=== PATIENT | female | born 1940 | race Caucasian/White ===

== ENCOUNTER 2020-04-13 09:27 | Inpatient (IN) | payer OTHER ==
[2020-04-13 11:08] LABS: Absolute Lymphocytes (CBC) 1.4 K/uL (0.7-4.9); Basophils % 0.6 % (0-1.3); Hematocrit 32.9 % (36.0-45.0); Lymphocytes % 11.5 % (15.3-44.8); MPV 7.7 fL (7.6-11.3); RBC Red Blood Cell Count 3.26 M/uL (3.86-4.86)
[2020-04-13 11:19] LABS: ALT/SGPT 26 U/L (12-78); AST/SGOT 44 U/L (15-37); Albumin 3.2 g/dL (3.4-5.0); Alkaline Phosphatase 177 U/L (45-117); BUN Blood Urea Nitrogen 12 mg/dL (7-18); Bicarbonate 25 mmol/L (21-32); Bilirubin Direct 0.2 mg/dL (0-0.2); Bilirubin Total 0.6 mg/dL (0.2-1.0); Glucose Level 138 mg/dL (74-106); Lipase 101 U/L (73-393); Magnesium 2.2 mg/dL (1.8-2.4); NT PRO-BNP 174 pg/mL (<450); Potassium 3.8 mmol/L (3.5-5.1); Protein, Total 6.6 g/dL (6.4-8.2); Sodium Level 139 mmol/L (136-145); Troponin (Emerg Dept Use Only) < 0.02 ng/mL (0.0-0.045)
[2020-04-13] MEDS ORDERED: NA CHLORIDE 0.9% 1,000 ML ONE (11:32)
--- OUTSIDE RECORDS SUMMARY | 2020-04-13 11:40 | XMS REPORT | Clinical Summary ---
:1940 Author Organization [facility] Address [address] [place] [address] Care Team Providers Name Role Phone Romaine Cheney MD Primary Care Provider Allergies Active Allergy Reactions Severity Noted Date Comments Codeine Rash Low 02/19/2017 Garlic Rash Low 02/19/2017 Pregabalin Rash Low 02/19/2017 Milk Rash Low 02/19/2017 Morphine Rash Low 02/19/2017 Onion Rash Low 02/19/2017 Shrimp Rash Low 02/19/2017 Acetaminophen Rash Low 02/19/2017 Wheat Rash Low 02/19/2017 Yeast, Dried Rash Low 02/19/2017 Medications Medication Sig Dispensed Refills Start End Date Status Date zolpidem CR (AMBIEN 0 Active CR) 6.25 MG CR tablet 7 indomethacin SR 0 Acti ve (INDOCIN SR) 75 mg CR 7 capsule estradiol (ESTRACE) 0 Active 0.5 MG tablet 7 amitriptyline 0 Active (ELAVIL) 10 MG tablet 7 L. rhamnosus Take by 0 Active GG/inulin (CULTURELLE mouth. PROBIOTICS ORAL) LYSINE ORAL Take by 0 Active mouth. benzonatate 0 Active (TESSALON) 200 MG 4 capsule olmesartan (BENICAR) TAKE ONE (1) 1 Active 40 MG tablet TABLET(S) BY 9 MOUTH ONCE A DAY. levothyroxine 0 Active (SYNTHROID, LEVOXYL) 5 125 mcg tablet omeprazole (PriLOSEC) TAKE ONE 60 capsule 3 Active 40 MG CAPSULE BY 0 capsuleIndications: MOUTH TWICE Gastroesophageal A DAY reflux disease without esophagitis esomeprazole (NexIUM) Take 40 mg 0 0 Discontinued 40 MG capsule by mouth. 19 (Thera py completed) omeprazole (PriLOSEC) TAKE ONE 60 capsule 2 0 Discontinued 40 MG CAPSULE BY 9 19 (Reorder) capsuleIndications: MOUTH TWICE Gastroesophageal A DAY reflux disease without esophagitis omeprazole (PriLOSEC) TAKE ONE 22 capsule 1 0 Discontinued 40 MG CAPSULE BY 9 20 capsuleIndications: MOUTH TWICE Gastroesophageal A DAY reflux disease without esophagitis omeprazole (PriLOSEC) TAKE ONE 60 capsule 4 0 Discontinued 40 MG CAPSULE BY 0 20 capsuleIndications: MOUTH TWICE Gastroesophageal A DAY reflux disease without esophagitis Active Problems No known active problems Encounters Date Type Specialty Care Team Description 12/19/2019 Refill Gastroenterology Srinivasa Gaston Gastroes ophageal reflux Letrice, [employer] disease without esophagitis 11/02/2019 Refill Gastroenterology Srinivasa Gaston Gastroes ophageal reflux Letrice, [employer] disease without esophagitis 06/25/2019 Refill Gastroenterology Srinivasa Gaston Gastroes ophageal reflux Letrice, [employer] disease without esophagitis 04/17/2019 Telephone Gastroenterology Ita Reese, TERE 04/14/2019 Telephone Gastroenterology Alysha Maldonado Eosino philic gastritis RN (Primary Dx) after 04/13/2019 Family History Medical History Relation Name Comments Heart failure Father Heart attack Mother Relation Name Status Comments Father Mother Social History Tobacco Use Types Packs/Day Years Used Date Former Smoker 0.5 3 Quit: 1964 Smokeless Tobacco: Former User Alcohol Use Drinks/Week oz/Week Comments No Alcohol Habits Answer Date Recorded How often do you have a drink containing alcohol? Never 02/12/2019 How many drinks containing alcohol do you have on a typical Not asked day when you are drinking? How often do you have six or more drinks on one occasion? No t asked Sex Assigned at Date Recorded Not on file Job Start Date Occupation Industry Not on file Not on file Not on file Travel History Travel Start Travel End No recent travel history available. Last Filed Vital Signs Not on file Plan of Treatment Health Maintenance Due Date Last Done Comments COLONOSCOPY SCREENING 1941 SHINGLES VACCINES (#1) 01/22/1992 65+ PNEUMOCOCCAL VACCINE (1 of 2 - PCV13) 2007 INFLUENZA VACCINE 05/29/2020 Results Not on fileafter 04/13/2019 Insurance Payer Benefit Plan / Subscriber ID Effective Dates Phone Addre ss Type Group HUMANA MEDICARE HUMANA MEDICARE xxxxxxxxx 2017-Present PPO PPO/PFFS/ERS [facility] Advance Directives For more information, please contact: [phone] Type Date Recorded Patient Marshmallow Runner Explanati on Advance Directives, Living Will 03/03/2019 7:40 AM and Medical 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
--- OUTSIDE RECORDS SUMMARY | 2020-04-13 11:40 | XMS REPORT | Continuity of Care Document ---
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 Hypertensive Active Problem 06/23/2019 Med ical disorder, Group systemic arterial (disorder) Hypothyroidism Resolved Problem 06/23/2019 M edical (disorder) Group Medical Active Problem 06/23/2019 Medica l examinations/repo Gr oup rts status (finding) Memory impairment Active Problem 06/23/2019 M H Medical (finding) Group Obesity Active Problem 06/23/2019 Medica l (disorder) Group Medications Medication Details Route Status Patient Ordering Order Source Instructions Provider Date olmesartan 40 mg = 1 tab, PO, Active MH oral tablet Daily, # 90 019 Medical tab, Group Pharmacy: [place] [address] amitriptyline 10 = 2 tab, PO, Active MH mg oral tablet Bedtime, # 019 Medica l 180 tab, Group Pharmacy: [place] [address] indomethacin 75 = 1 cap, PO, Active MH mg oral capsule, Daily, # 90 019 Med ical extended release unknown Group unit, Pharmacy: [place] [address] Levothyroxine See Active MH Sodium 0.088 MG Instructions 018 Med ical Oral Tablet , TAKE ONE Group [Synthroid] TABLET BY MOUTH DAILY, # 90 tab, 0 Refill(s), CHARLEY, Pharmacy: [place] [address] Levothyroxine See Active MH Sodium 0.088 MG Instructions 018 Med ical Oral Tablet , TAKE ONE Group [Synthroid] TABLET BY MOUTH DAILY, # 90 tab, 2 Refill(s), CHARLEY, Pharmacy: [place] [address] indomethacin 75 75 mg = 1 No Longer MH mg oral capsule, cap, PO, Active 018 Medica l extended release Daily, # 90 Marian up cap, 0 Refill(s), Pharmacy: [place] [address] Zolpidem 6.25 mg = 1 Active tartrate 6.25 MG tab, PO, 018 Medica l Extended Release Bedtime, PRN Gr oup Tablet [Ambien] for sleep, # 30 tab, 2 Refill(s) amitriptyline 10 See No Longer mg oral tablet Instructions Active 018 Medi esau , # 180 tab, Group TAKE TWO TABLETS BY MOUTH AT BEDTIME, Pharmacy: [place] [address] olmesartan 40 mg 40 mg = 1 No Longer oral tablet tab, PO, Active 018 Medical Daily, # 90 Group tab, 1 Refill(s), Pharmacy: [place] [address] Levothyroxine See Active Sodium 0.088 MG Instructions 018 Med ical Oral Tablet , # 90 tab, Group [Synthroid] Refill(s) 1, TAKE ONE TABLET BY MOUTH DAILY, CHARLEY, Pharmacy: [place] [address] valsartan 320 mg See Active oral tablet Instructions 018 Medical , # 90 tab, Group TAKE ONE TABLET BY MOUTH DAILY, Pharmacy: [place] [address] amitriptyline 10 20 mg = 2 Active mg oral tablet tab, PO, 018 Medical Bedtime, # Group 180 tab, 0 Refill(s), Pharmacy: [place] [address] Zolpidem 6.25 mg = 1 Active tartrate 6.25 MG tab, PO, 018 Medica l Extended Release Bedtime, PRN Gr oup Tablet [Ambien] for sleep, # 30 tab, 2 Refill(s) valsartan 320 mg See No Longer oral tablet Instructions Active 018 Medical , # 90 tab, Group TAKE ONE TABLET BY MOUTH DAILY, Pharmacy: [place] [address] Levothyroxine See No Longer Sodium 0.088 MG Instructions Active 018 Med ical Oral Tablet , # 90 tab, Group [Synthroid] TAKE ONE TABLET BY MOUTH DAILY, CHARLEY, Pharmacy: [place] [address] omeprazole 40 mg 40 mg = 1 Active oral delayed cap, PO, 018 Medical release capsule Daily, # 90 Grou p cap, 1 Refill(s), [facility] Megan indomethacin 75 75 mg = 1 Active mg oral capsule, cap, PO, 018 Medica l extended release Daily, # 90 Marian up cap, 1 Refill(s), Pharmacy: [facility] Megan indomethacin 75 See No Longer mg oral capsule, Instructions Active 018 Me dical extended release , # 90 Group unknown unit, TAKE ONE CAPSULE BY MOUTH ONCE DAILY, Pharmacy: [place] [address] amitriptyline 10 See Active mg oral tablet Instructions 017 Medi esau , # 180 tab, Group TAKE TWO TABLETS BY MOUTH AT BEDTIME, Pharmacy: [facility] Megan indomethacin 75 See Active mg oral capsule, Instructions 017 Me dical extended release , # 90 Group unknown unit, TAKE ONE CAPSULE BY MOUTH ONCE DAILY, Pharmacy: [place] [address] Allergies, Adverse Reactions, Alerts Substance Category Reaction Severity Reaction Status Date Comments S ource type Reported codeine Assertion Drug Active allergy Medical Group morphine Assertion Drug Active allergy Medical Group Tylenol Assertion Drug Active allergy Medical Group Lyrica Assertion Drug Active allergy Medical Group Immunizations Immunization Date Given Site Status Last Comments Source Updated pneumococcal 09/17/2015 Left completed [facility] Med ical 23-valent vaccine Deltoid Gr oup Results No Data Provided for This Section Pathology Reports No Data Provided for This Section Diagnostic Reports No Data Provided for This Section Consultation Notes No Data Provided for This Section Discharge Summaries No Data Provided for This Section History and Physicals No Data Provided for This Section Vital Signs Vital Sign Value Date Comments Source Height 167.64 cm 12/21/2017 Medical Grou p BMI Calculated 30.25 12/21/2017 Medical Gr oup Systolic (mm Hg) 146 12/21/2017 Medical Group Diastolic (mm Hg) 80 12/21/2017 Medical Group Weight 85 12/21/2017 Medical Grou p Heart Rate 60 12/21/2017 Medical Grou p Respitory Rate 18 12/21/2017 Medical Gr oup Temperature Oral (F) 97.7 F 12/21/2017 Medi esau Group Encounters Location Location Encounter Encounter Reason Attending ADM DC Stat us Source Details Type Number For Provider Date Date Visit [facility] Out[facility] Diag [id number] Desire 07/07 07/08 [facility]2013 [facility] [place] [facility] [id number] DESIRE 09/17 [facility] [id number] DESIRE 03/03 [facility] [id number] DESIRE 06/19 Active [facility] [id number] DESIRE 09/18 Active [facility] [id number] DESIRE 10/05 Active [facility] [id number] DESIRE 10/05 Active [facility] [id number] DESIRE 10/09 Active [facility] [id number] DESIRE 11/15 Active [facility] MG Phone [id number] 09/12 09/14 Internal Message /2016 [facility] Group [facility] Phone [id number] 12/13 12/15 Internal Message /2017 Medical Medicine Group [facility] Outpatient [id number] DESIRE 12/21 Active [facility]patient [id number] Desire 12/21 12/22 MH Internal [place] /2017 [facility] Medicine Group [facility] Phone [id number] 12/26 12/28 Internal Message /2017 Medical Medicine Group [facility] Phone [id number] 12/31 01/02 Internal Message /2017 Medical Medicine Group [facility] Phone [id number] 12/31 01/02 MH Internal Message /2017 Medical Medicine Group [facility] Phone [id number] 01/30 02/01 Internal Message /2017 Medical Medicine Group [facility] Phone [id number] 02/25 02/27 Internal Message /2017 Medical Medicine Group [facility] Phone [id number] 04/01 04/03 Internal Message /2017 Medical Medicine Group [facility] Phone [id number] 06/25 06/27 Internal Message /2017 Medical Medicine Group [facility] Phone [id number] 06/26 06/28 Internal Message /2017 Medical Medicine Group [facility] Phone [id number] 08/27 08/29 Internal Message /2017 Medical Medicine Group [facility] Phone [id number] 09/03 09/05 Internal Message /2017 [facility] Phone [id number] 09/23 09/25 Internal Message /2017 Medical Medicine Group [facility] Phone [id number] 09/24 09/26 Internal Message /2017 Medical Medicine Group [facility] Phone [id number] 12/02 12/04 Internal Message /2018 Medical Medicine Group [facility] Phone [id number] 12/19 12/21 Internal Message /2018 Medical Medicine Group [facility] Procedures Procedure Code Date Perfomer Comments Source Mammogram [id number] 11/29/2017 Medical Group Bone density scan [id number] 12/14/2016 Medi esau Group Pelvic prolapse [id number] 10/29/2015 Medica l Group Total knee [id number] 06/28/2015 Left Medical replacement<sup>1</ Group sup> Colonoscopy [id number] 10/29/2008 Medical Group Repair of vaginal 514055017 10/29/2006 Medi esau wall prolapse Group Manipulation of [id number] 10/29/1995 Medica l deviated nasal Group septum Hysterectomy [id number] 10/29/1984 Medical Group Knee replacement [id number] 10/29/1975 Medic al Group Assessment and Plan No Data Provided for This Section Plan of Care No Data Provided for This Section Social History Social History Date Source Social History TypeResponse 12/21/2017 Medical G roup Smoking Status Former smoker; Type: Cigarettes; Exposur e to Tobacco Smoke None; Cigarette Smoking Last 365 Days No; Reg Smoking Cessation Counseling No entered on: 12/21/17 Family History No Data Provided for This Section Advance Directives No Data Provided for This Section Functional Status No Data Provided for This Section
--- OUTSIDE RECORDS SUMMARY | 2020-04-13 11:41 | XMS REPORT | Continuity of Care Document ---
:1940 Author Organization [facility] t Address [address] [place] [address] Care Team Providers Name Role Phone Romaine Cheney MD Primary Care Physician Juan Carlos Gaston NP Attending Clinician Marissa Reese MA Attending Clinician Unavailable Joel VILLARREAL Attending Clinician Unavailable Chris Juan Attending Clinician Payers Payer Name Policy Type Policy Number Effective Date Expiration Source Date HUMANA xxxxxxxxx 2017 [facility] MEDICAREHUMANA 00:00:00 [facility] MEDICARE PPO/PFFS/ERS [facility]/ [id number] Problems Condition Condition Condition Status Onset Resolution Last Treating Co mments Source Name Details Category Date Date Treatment Clinician Date Bursitis Problem Resolve 2019-06-23 Me moria (disorder) d 13:41:10 l Bursitis Live n (disorder) Resolved Problem 06/23/2019 [facility] Hypothyroi Problem Resolve 2019-06-23 Memoria dism d 13:41:10 l (disorder) Live n Hypothyroi dism (disorder) Resolved Problem 06/23/2019 [facility] Fibromyosi Problem Active 2019-06-23 M emoria tis 13:41:10 l (disorder) Live n Fibromyosi tis (disorder) Active Problem 06/23/2019 [facility] Hypertensi Problem Active 2019-06-23 M emoria ve 13:41:10 l disorder, [place] systemic Hypertensi arterial ve (disorder) disorder, systemic arterial (disorder) Active Problem 06/23/2019 [facility] Medical Problem Active 2019-06-23 Quintin yosi examinatio 13:41:10 l ns/reports Medical Her connor status examinatio (finding) ns/reports status (finding) Active Problem 06/23/2019 [facility] Memory Problem Active 2019-06-23 Memor ia impairment 13:41:10 l (finding) Memory Cadence nn impairment (finding) Active Problem 06/23/2019 [facility] Obesity Problem Active 2019-06-23 Quintin yosi (disorder) 13:41:10 l Obesity Johnson (disorder) Active Problem 06/23/2019 [facility] Allergies, Adverse Reactions, Alerts Allergy Allergy Status Severity Reaction(s) Onset Inactive Treating Comm ents Source Name Type Date Date Clinician Codeine Propensi Active Rash [facility] ty to 02-19 [facility] adverse 00:00: st reaction 00 s to drug Garlic Propensi Active Rash [facility] ty to 02-19 [facility] adverse 00:00: st reaction 00 s to drug Pregabal Propensi Active Rash [place] in ty to 02-19 Methodi adverse 00:00: st reaction 00 s to drug Milk Propensi Active Rash [facility] ty to 02-19 Methodi adverse 00:00: st reaction 00 s to drug Morphine Propensi Active Rash [place] ty to 02-19 Methodi adverse 00:00: st reaction 00 s to drug Onion Propensi Active Rash [facility] ty to 02-19 Methodi adverse 00:00: st reaction 00 s to drug Shrimp Propensi Active Rash [facility] ty to 02-19 Methodi adverse 00:00: st reaction 00 s to drug Acetamin [facility] adverse 00:00: st reaction 00 s to drug Wheat Propensi Active Rash [facility] ty to 02-19 Method[facility] adverse 00:00: st reaction 00 s to drug Yeast, Propensi Active Rash [facility] Dried ty to 02-19 Methodi adverse 00:00: st reaction 00 s to drug morphine [place] [facility] [place] [facility] [place] [place] [facility] [place] [facility] pregabal DA Active [place] [facility]- [facility] [place] codeine codeine Active Memoria l [place] morphine morphine Active Memori a l [place] Tylenol Tylenol Active Memoria l [place] Lyrica Lyrica Active Memoria l [place] Family History Family Member Diagnosis Comments Start Date Stop Date Source Natural father Heart failure [facility] Natural mother Heart attack [facility] Social History Social Habit Start Date Stop Date Quantity Comments Source History of tobacco Current smoker [place] [facility] use History [facility] Alcohol Std Drinks History [facility] Alcohol Binge Sex [facility]igned At [facility] ethodist Cigarettes smoked 2019-04-08 2019-04-08 [facility] current (pack per 00:00:00 00:00:00 day) - Reported Cigarette 2019-04-08 2019-04-08 [facility] pack-years 00:00:00 00:00:00 Alcohol intake 2019-04-08 2019-04-08 Current [facility]ist 00:00:00 00:00:00 non-drinker of alcohol (finding) History SDPR 2019-02-12 2019-02-12 1 [facility] Alcohol Frequency 00:00:00 00:00:00 Smoking Status Start Date Stop Date Source Social History 2017-12-21 15:09:02 2017-12-21 15:09:02 [facility] Medications Ordered Filled Start Stop Current Ordering Indication Dosage Frequency Signature Comments Components Source Medication Medication Date Date Medication? Clinician (SIG) Name Name omeprazole Yes Gastroesoph TAKE ONE [facility] (PriLOSEC) 2- ageal CAPSULE BY Va thodi 40 MG 00:00: reflux MOUTH st capsule 00 disease TWICE A without DAY esophagitis omeprazole 2020- No Gastroesoph TAKE ONE [facility] (PriLOSEC) 11-03 ageal CAPSULE BY ethodi 40 MG 00:00: 00:[address] capsule 00 :00 disease TWICE A without DAY esophagitis esomeprazol 2019- No 40mg Take 40 mg Martinez e (NexIUM) 06-25 by mouth. Met hodi 40 MG 13:21: 00:00 st capsule 53 :00 omeprazole 2020- No Gastroesoph TAKE ONE Martinez (PriLOSEC) 06-25 ageal CAPSULE BY Nate ethodi 40 MG 00:00: 00:[address] capsule 00 :00 disease TWICE A without DAY esophagitis L. Yes Take by Martinez rhamnosus 6-11 mouth. Methodi GG/inulin 11:02: st (CULTURELLE 39 PROBIOTICS ORAL) LYSINE ORAL Yes Take by Za ston 6-11 mouth. Methodi 11:02: st 39 omeprazole 2019- No Gastroesoph TAKE ONE Martinez (PriLOSEC) 03-10 ageal CAPSULE BY Nate ethodi 40 MG 00:00: 00:[address] capsule 00 :00 disease TWICE A without DAY esophagitis olmesartan Yes TAKE ONE Za harry (BENICAR) - (1) Methodi 40 MG 00:00: TABLET(S) st tablet 00 BY MOUTH ONCE A DAY. olmesartan Yes = 1 tab, Mem oria 40 mg oral 2-21 PO, Daily, l tablet 16:50: # 90 tab, Live n 08 Pharmacy: [place] [id number] amitriptyli Yes = 2 tab, Me moria ne 10 mg 2-05 PO, l oral tablet 15:33: Bedtime, # [place] 35 180 tab, Pharmacy: [place] [id number] indomethaci Yes = 1 cap, Me moria n 75 mg 2-01 PO, Daily, l oral 16:29: # 90 [place] capsule, 05 unknown extended unit, release Pharmacy: [place] [id number] Levothyroxi 2017-10 Yes See Memori a ne Sodium 1-28 Instructio l 0.088 MG 00:36: ns, TAKE Cadence nn Oral Tablet 00 ONE TABLET [Synthroid] BY MOUTH DAILY, # 90 tab, 0 Refill(s), CHARLEY, Pharmacy: [place] [id number] Levothyroxi 2017-10 Yes See Memori a ne Sodium 1-27 Instructio l 0.088 MG 20:53: ns, TAKE Cadence nn Oral Tablet 35 ONE TABLET [Synthroid] BY MOUTH DAILY, # 90 tab, 2 Refill(s), CHARLEY, Pharmacy: [place] [id number] indomethaci 2017-10 No 75 mg = 1 M emoria n 75 mg 1-07 cap, PO, l oral 00:18: Daily, # Johnson capsule, 00 90 cap, 0 extended Refill(s), release Pharmacy: [place] [id number] Zolpidem 2017-10 Yes 6.25 mg = Quintin yosi tartrate 0-31 1 tab, PO, l 6.25 MG 03:18: Bedtime, Live n Extended 00 PRN for Release sleep, # Tablet 30 tab, 2 [Ambien] Refill(s) amitriptyli No See Memori a ne 10 mg 8-30 Instructio l oral tablet 23:21: ns, # 180 H ermann 42 tab, TAKE TWO TABLETS BY MOUTH AT BEDTIME, Pharmacy: [place] [id number] olmesartan No 40 mg = 1 Me moria 40 mg oral 8-30 tab, PO, l tablet 03:47: Daily, # Johnson 00 90 tab, 1 Refill(s), Pharmacy: [place] [id number] Levothyroxi Yes See Memori a ne Sodium 6-04 Instructio l 0.088 MG 17:40: ns, # 90 Cadence nn Oral Tablet 45 tab, [Synthroid] Refill(s) 1, TAKE ONE TABLET BY MOUTH DAILY, CHARLEY, Pharmacy: [place] [id number] valsartan Yes See Memoria 320 mg oral 6-04 Instructio l tablet 17:40: ns, # 90 [place] 45 tab, TAKE ONE TABLET BY MOUTH DAILY, Pharmacy: [place] [id number] amitriptyli Yes 20 mg = 2 M emoria ne 10 mg 4-30 tab, PO, l oral tablet 15:10: Bedtime, # Johnson 00 180 tab, 0 Refill(s), Pharmacy: [place] [id number] Zolpidem Yes 6.25 mg = Quintin yosi tartrate 4-04 1 tab, PO, l 6.25 MG 20:15: Bedtime, Live n Extended 00 PRN for Release sleep, # Tablet 30 tab, 2 [Ambien] Refill(s) valsartan No See Memoria 320 mg oral 3-06 Instructio l tablet 03:27: ns, # 90 Johnson 51 tab, TAKE ONE TABLET BY MOUTH DAILY, Pharmacy: [place] [address] Levothyroxi No See Memori a ne Sodium 3-05 Instructio l 0.088 MG 19:31: ns, # 90 Cadence nn Oral Tablet 04 tab, TAKE [Synthroid] ONE TABLET BY MOUTH DAILY, CHARLEY, Pharmacy: [place] [id number] omeprazole Yes 40 mg = 1 Me moria 40 mg oral 2-28 cap, PO, l delayed 21:03: Daily, # Live n release 00 90 cap, 1 capsule Refill(s), Pharmacy: [place] [id number] indomethaci Yes 75 mg = 1 M emoria n 75 mg 2-23 cap, PO, l oral 15:39: Daily, # [place] capsule, 12 90 cap, 1 extended Refill(s), release Pharmacy: [place] [id number] indomethaci No See Memori a n 75 mg 2-15 Instructio l oral 23:57: ns, # 90 [place] capsule, 50 unknown extended unit, TAKE release ONE CAPSULE BY MOUTH ONCE DAILY, Pharmacy: [place] [address] amitriptyli 2016-10 Yes See Memori a ne 10 mg 1-15 Instructio l oral tablet 20:55: ns, # 180 H ermann 30 tab, TAKE TWO TABLETS BY MOUTH AT BEDTIME, Pharmacy: [place] [address] indomethaci 2016-10 Yes See Memori a n 75 mg 1-15 Instructio l oral 20:55: ns, # 90 Johnson capsule, 30 unknown extended unit, TAKE release ONE CAPSULE BY MOUTH ONCE DAILY, Pharmacy: [place] [address] amitriptyli Yes Betsy milligan ne (ELAVIL) 4-17 Methodi 10 MG 00:00: st tablet 00 zolpidem CR Yes Betsy milligan (AMBIEN CR) 4-10 [facility] 6.25 MG CR 00:00: st tablet 00 indomethaci Yes Betsy milligan n SR 2-07 [facility] (INDOCIN 00:00: st SR) 75 mg 00 CR capsule estradiol Yes Juan (ESTRACE) 2-07 [facility] 0.5 MG 00:00: st tablet 00 levothyroxi Yes Betsy milligan ne 2-18 [facility] (SYNTHROID, 00:00: st LEVOXYL) 00 125 mcg tablet benzonatate Yes Betsy n (TESSALON) 3-28 [facility] 200 MG 00:00: st capsule 00 Vital Signs Vital Name Observation Time Observation Value Comments Source Height 2017-12-21 15:08:00 167.64 cm [facility] [place] Sy[facility]mm Hg) 2017-12-21 15:08:00 Quintin rial [place] Diastolic (mm Hg) 2017-12-21 15:08:00 [facility] orial [place] Weight 2017-12-21 15:08:00 [facility] Heart Rate 2017-12-21 15:08:00 [facility] Respitory Rate 2017-12-21 15:08:00 [facility] Temperature Oral (F) 2017-12-21 15:08:00 97.7 F [facility] Procedures Procedure Date / Time Performed Performing Clinician [facility] e Mammogram 2017-11-29 00:00:00 [facility] Her connor Bone density scan 2016-12-14 06:00:00 [facility] Lynda ermann Pelvic prolapse 2015-10-29 00:00:00 [facility] Her connor Total knee 2015-06-28 05:00:00 [facility] Her connor replacement<sup>1</sup> Colonoscopy 2008-10-29 00:00:00 [facility] Her connor Repair of vaginal wall 2006-10-29 06:00[facility] Ornelas prolapse Manipulation of deviated 1995-10-29 06:00:00 [facility] orial [place] nasal septum Hysterectomy 1984-10-29 06:00:00 [facility] Her connor Knee [facility]10[facility] Planned Activity Planned Date Details Comments Source Future Scheduled 2020-05-29 INFLUENZA VACCINE [facility] Test 00:00:00 [code = INFLUENZA VACCINE] Future Scheduled 2007 65+ PNEUMOCOCCAL [facility] Test 00:00:00 VACCINE (1 of 2 - PCV13) [code = 65+ PNEUMOCOCCAL VACCINE (1 of 2 - PCV13)] Future Scheduled 1992-01-22 SHINGLES VACCINES (#1) H [facility] Test 00:00:00 [code = SHINGLES VACCINES (#1)] Future Scheduled 1941 COLONOSCOPY SCREENING [facility] je[facility] Test 00:00:00 [code = COLONOSCOPY SCREENING] Encounters Start End Encounter Admission Attending Care Care Encounter Source Date/Time Date/Time Type Type Clinicians Facility Department ID 2018-12-19 2018-12-20 Outpatient [facility] [id number] 10:41:00 23:59:59 39 2018-12-02 2018-12-03 Outpatient [facility] [id number] 15:32:00 23:59:59 38 2018-12-02 2018-12-03 Outpatient [facility] [id number] 15:32:00 23:59:59 38 2018-09-24 2018-09-25 Outpatient [facility] [id number] 14:52:00 23:59:59 37 2018-09-23 2018-09-24 Outpatient [facility] [id number] 13:48:00 23:59:59 36 2018-09-03 2018-09-04 Outpatient [facility] [id number] 12:35:00 23:59:59 35 2018-08-27 2018-08-28 Outpatient [facility] [id number] 16:15:00 23:59:59 34 2018-06-26 2018-06-27 Outpatient [facility] [id number] 14:10:00 23:59:59 33 2018-06-25 2018-06-26 Outpatient [facility] [id number] 15:37:00 23:59:59 32 2018-04-01 2018-04-02 Outpatient [facility] [id number] 10:09:00 23:59:59 31 2018-02-25 2018-02-26 Outpatient [facility] [id number] 08:50:00 23:59:59 30 2018-01-30 2018-01-31 Outpatient [facility] [id number] 09:05:00 23:59:59 29 2017-12-31 2018-01-01 Outpatient [facility] [id number] 14:00:00 23:59:59 28 2017-12-31 2018-01-01 Outpatient [facility] [id number] 14:00:00 23:59:59 28 2017-12-31 2018-01-01 Outpatient [facility] [id number] 07:45:00 23:59:59 27 2017-12-31 2018-01-01 Outpatient [facility] [id number] 07:45:00 23:59:59 27 2017-12-26 2017-12-27 Outpatient [facility] [id number] 08:06:00 23:59:59 26 2017-12-21 2017-12-21 Outpatient Yessica [facility] [id number] 10:00:00 23:59:59 Desire Perez 08 2017-12-13 2017-12-14 Outpatient [facility] [id number] 12:51:00 23:59:59 25 2017-09-12 2017-09-13 Outpatient [facility] [id number] 09:00:00 23:59:59 24 2014-07-07 2014-07-07 [id number] 09:01:00 23:59:00 Desire Perez 00 Results This patient has no known results.
[2020-04-13 11:49] LABS: Urine Blood NEGATIVE (NEG); Urine Glucose NEGATIVE (NEG); Urine Protein TRACE (NEG); Urine Specific Gravity 1.025 (1.005-1.030)
--- NOTE | 2020-04-13 12:03 | RAD REPORT ---
EXAM DESCRIPTION: CT - Head C Spine Cap W Con - 04/13/2020 11:43 am CLINICAL HISTORY: Pain;Weakness;Swelling COMPARISON: No comparisons TECHNIQUE: Axial [address] head images were obtained. Axial [address] cervical spine images were obtaine d with sagittal and coronal reconstruction images reviewed. During dynamic enhancement of 100mL non-i onic contrast, axial 5 mm images of the chest, abdomen and pelvis were obtained. Biphasic technique p erformed of the abdomen and pelvis. All CT scans are performed using dose optimization technique as appropriate and may include automated exposure control or mA/KV adjustment according to patient size. FINDINGS: No intracranial hemorrhage, mass or edema. No midline shift or abnormal fluid collection. Patient has minimal atrophy and chronic ischemic change. Ventricles are normal. Mastoid air cells and paranasal sinuses are clear. No skull fracture. Cervical bodies are normal in height. No acute cervical compression fracture. All disc levels except C2-3 show loss in height. Prominent endplate spurring throughout most of the cervical spine. There is straightening of the usual cervical lordosis with a slight reversal at C4. Advanced facet degenerati ve change causes mild foraminal stenosis on the left at C 2-3. Bilateral foraminal stenosis at C3-4 w ith severe left-side C4-5 foraminal stenosis. Significant bilateral foraminal stenosis at C 5-6. Cent ral spinal stenosis is present at C5-6 and C4-5. No paraspinal mass or hematoma seen. Central canal d etail is inherently limited. Concerns for traumatic disc herniation or traumatic cord injury can be f urther addressed with MR imaging. CT chest shows no pneumothorax, pulmonary contusion or pleural fluid collection. No mediastinal hemat bette and the aorta and pulmonary arteries are unremarkable. No chest will mass or abnormal axillary fi nding. No displaced rib fracture or other significant bony finding. The spleen is abnormal. Splenic laceration is present. There is an approximately 8 x 3.5 centimeter s ubcapsular hematoma along the lateral margin of the spleen. Small amount of hemorrhage is present kyle ng the left colic gutter already partially in capsulated. Small amount of hemorrhage is collecting in the dependent portion of the pelvis. Splenic granulomas are present. No active extravasation of cont rast. The liver shows fatty infiltration with no injury to the liver. No pancreatic abnormality. Gallbladde r is absent. No biliary tree dilatation. No acute bowel injury. No free air or pneumatosis. No urinar y bladder abnormality. No thoracic or lumbar compression fracture. Disc degenerative change in the lower lumbar spine. No significant vascular finding. IMPRESSION: Splenic laceration with no active extravasation of the contrast. There is an 8 x 3.5 jlil timeter subcapsular hematoma in the spleen. Blood is present along the left colic gutter already partially encapsulated. There is a small amount of blood collecting in the pelvis. No hemorrhage or acute intracranial finding. Patient has minimal atrophy and chronic ischemic change. Patient has severe cervical spine degenerative change with multilevel foraminal stenosis and multilev el central spinal stenosis. No fracture or acute cervical spine finding. No significant CT Chest finding. With the exception of the splenic findings detailed above, the abdomen and pelvis shows no additional acute finding.
--- NOTE | 2020-04-13 12:25 | RAD REPORT ---
EXAM DESCRIPTION: RAD - Chest Single View - 04/13/2020 12:02 pm CLINICAL HISTORY: Chest pain;Blunt chest trauma COMPARISON: Two view chest February 2013 TECHNIQUE: AP portable chest image was obtained 04/13/2020 12:02 pm . FINDINGS: No pulmonary contusion or acute lung parenchymal pattern. Patient has chronic interstitial pattern accentuated by shallow inspiration. Calcified granuloma surface. Heart and vasculature are n ormal. No measurable pleural effusion and no pneumothorax. No acute bony abnormality seen. No acute a ortic findings suspected. IMPRESSION: No pulmonary contusion, pneumothorax or acute chest finding. Chronic interstitial fibrotic pattern similar to comparison.
--- NOTE | 2020-04-13 12:36 | ER ---
Nurse's Notes [facility] Name: Jennifer Venegas Age: 80 yrs Sex: Female : 1940 Arrival Date: 04/13/2020 Time: 09:29 Bed 4 Private MD: Diagnosis: Laceration of spleen-8x 3.5 cm sibcapsular hematoma;Hemoperitoneum;Syncope and collapse;Abdominal tenderness Presentation: 04/13 09:47 Chief complaint: Patient states: Slipped and fell approx 10 days ago [place], ph states, " I slipped on some rocks and landed on my arms and my L side hit a statue, I felt like I bruised my ribs and my arms were pretty beat up but I didn't go to the hospital. I started feeling better but then last night while I was getting ready for bed I passed out, saw stars and everything." Pt reports an episode of urinary incontinence after passing out, denies injury r/t syncopal episode. Coronavirus screen: Patient denies a cough. Patient denies shortness of breath or difficulty breathing. Patient denies measured and/or subjective temperature greater than 100.4F prior to today's visit. Patient denies travel on a cruise ship or to a country the [facility] currently lists as an affected area. Patient denies contact with known and/or suspected case of COVID-19. Ebola Screen: No symptoms or risks identified at this time. Initial Sepsis Screen: Does the patient meet any 2 criteria? No. Patient's initial sepsis screen is negative. Does the patient have a suspected source of infection? No. Patient's initial sepsis screen is negative. Risk Assessment: Do you want to hurt yourself or someone else? Patient reports no desire to harm self or others. Onset of symptoms was April 13, 2020. 09:47 Method Of Arrival: Wheelchair ph 09:47 Acuity: BASIL 3 ph Historical: - Allergies: 09:52 Morphine; ph 09:52 Codeine; ph 09:52 acetaminophen; ph 09:52 PREGABALIN; ph - Home Meds: 12:48 Indocin 75 mg Oral [Active]; omeprazole 40 mg Oral cpDR 1 cap once daily [Active]; em Synthroid 125 mcg Oral tab [Active]; estradiol 0.5 mg Oral tab [Active]; Ambien 6.25 mg Oral tab [Active]; amitriptyline 10 mg Oral tab [Active]; - PMHx: 12:48 Fibromyalgia; pelvic prolapse; em - PSHx: 12:48 Hysterectomy; Tonsillectomy; Adenoids; em - Immunization history:: Adult Immunizations unknown. - Social history:: Smoking status: Patient denies any tobacco usage or history of. Screenin:00 Abuse screen: Denies threats or abuse. Nutritional screening: No deficits noted. em Tuberculosis screening: No symptoms or risk factors identified. Fall Risk Fall in past 12 months (25 points). Assessment: 11:00 General: Appears in no apparent distress. comfortable, Behavior is calm, cooperative, em appropriate for age. Pain: Complains of pain in left lower quadrant and left upper quadrant. Neuro: Level of Consciousness is awake, alert, obeys commands, Oriented to person, place, time, situation, Appropriate for age. Cardiovascular: Capillary refill < 3 seconds Patient's skin is warm and dry. Respiratory: Reports pain with respiration Airway is patent Respiratory effort is even, unlabored, Respiratory pattern is regular, symmetrical. GI: Abdomen is round distended, Abdomen is tender to palpation in left upper quadrant and left lower quadrant Abd is rigid in left upper quadrant and left lower quadrant. Derm: Skin is intact, is thin, Skin is pink, warm \\T\\ dry. Musculoskeletal: Capillary refill < 3 seconds, Range of motion: intact in all extremities. 11:25 Reassessment: Patient appears in no apparent distress at this time. wheeled to CT via em wheelchair. 12:15 Reassessment: Patient appears in no apparent distress at this time. Patient and/or em family updated on plan of care and expected duration. Pain level reassessed. Patient is alert, oriented x 3, equal unlabored respirations, skin warm/dry/pink. 12:30 Reassessment: Patient appears in no apparent distress at this time. Dr. Rodrigez at em bedside. 13:30 Reassessment: Patient appears in no apparent distress at this time. Patient and/or em family updated on plan of care and expected duration. Pain level reassessed. Patient is alert, oriented x 3, equal unlabored respirations, skin warm/dry/pink. 14:30 Reassessment: Patient appears in no apparent distress at this time. Patient and/or em family updated on plan of care and expected duration. Pain level reassessed. Patient is alert, oriented x 3, equal unlabored respirations, skin warm/dry/pink. Vital Signs: 09:47 BP 151 / 76; Pulse 100; Resp 18; Temp 97.9; Pulse Ox 100% on R/A; Weight 84.82 kg; ph 10:30 BP 124 / 68; Pulse 85; Resp 16; Pulse Ox 99% on R/A; Pain 5/10; em 12:00 BP 119 / 63; Pulse 74; Resp 16; Pulse Ox 98% on R/A; em 13:00 BP 140 / 70; Pulse 68; Resp 16; Pulse Ox 100% on R/A; em 14:00 BP 136 / 70; Pulse 64; Resp 15; Pulse Ox 99% on R/A; em [place] Coma Score: 10:30 Eye Response: spontaneous(4). Verbal Response: oriented(5). Motor Response: obeys em commands(6). Total: 15. Trauma Score (Adult): 10:30 Eye Response: spontaneous(1); Verbal Response: oriented(1); Motor Response: obeys em commands(2); Systolic BP: > 89 mm Hg(4); Respiratory Rate: 10 to 29 per min(4); [place] Score: 15; Trauma Score: 12 ED Course: 09:29 Patient arrived in ED. fj1 09:40 Luisito Barron MD is Attending Physician. deneen 09:48 Ronnell Dimas, RN is Primary Nurse. em 09:51 Triage completed. ph 11:00 Patient has correct armband on for positive identification. Call light in reach. Side em rails up X2. Adult w/ patient. Pulse ox on. NIBP on. 11:20 Inserted saline lock: 22 gauge in left antecubital area, using aseptic technique. Blood em collected. 11:20 Patient maintains SpO2 saturation greater than 95% on room air. em 11:43 CT Traumagram (Head C Spine CAP W Con) In Process Unspecified. EDMS 12:03 XRAY Chest (1 view) In Process Unspecified. EDMS 12:34 Berhane Rodrigez MD is Hospitalizing Provider. deneen 13:05 EKG done, by oracle technical architect. reviewed by Luisito Barron MD. at1 15:22 No provider procedures requiring assistance completed. Patient admitted, IV remains in em place. Administered Medications: 12:18 Drug: NS 0.9% 500 ml Route: IV; Rate: bolus; Site: left antecubital; em 14:13 Follow up: IV Status: Completed infusion; IV Intake: 500ml em 12:18 Drug: NS 0.9% 1000 ml Route: IV; Rate: 125 ml/hr; Site: left antecubital; em 13:00 Follow up: IV Status: Infusion continued upon admission em Intake: 14:13 IV: 500ml; Total: 500ml. em Outcome: 12:35 Decision to Hospitalize by Provider. deneen 15:22 Admitted to ICU accompanied by nurse, via stretcher, room 6, on monitor, with chart, em Report called to HPIL Cristina 15:22 Condition: good 15:22 Instructed on the need for admit, Demonstrated understanding of instructions. 15:24 Patient left the ED. em Signatures: Dispatcher [employer] Luisito Aguirre MD MD cha Munoz, Edgar, RN RN Susan Suarez, devulcanizer charger EKG Tat1 Mikaela Card RN RN Shekhar Rodriguez 1
--- NOTE | 2020-04-13 12:36 | EDPHYS ---
Physician Documentation [facility] Name: Jennifer Venegas Age: 80 yrs Sex: Female : 1940 Arrival Date: 04/13/2020 Time: 09:29 Bed 4 Private MD: ED Physician Luisito Barron HPI: 04/13 10:29 This 80 yrs old Female presents to ER via Wheelchair with complaints of Fall deneen Injury, Syncope. 10:29 Details of fall: The patient fell from an upright position, while walking. Onset: The deneen symptoms/episode began/occurred 10 day(s) ago. Associated injuries: The patient sustained injury to the head, neck injury, injury to the chest, injury to the abdomen. Severity of symptoms: At their worst the symptoms were moderate, in the emergency department the symptoms are actually worse, moderately. The patient has not experienced similar symptoms in the past. Historical: - Allergies: 09:52 Morphine; ph 09:52 Codeine; ph 09:52 acetaminophen; ph 09:52 PREGABALIN; ph - Home Meds: 12:48 Indocin 75 mg Oral [Active]; omeprazole 40 mg Oral cpDR 1 cap once daily [Active]; em Synthroid 125 mcg Oral tab [Active]; estradiol 0.5 mg Oral tab [Active]; Ambien 6.25 mg Oral tab [Active]; amitriptyline 10 mg Oral tab [Active]; - PMHx: 12:48 Fibromyalgia; pelvic prolapse; em - PSHx: 12:48 Hysterectomy; Tonsillectomy; Adenoids; em - Immunization history:: Adult Immunizations unknown. - Social history:: Smoking status: Patient denies any tobacco usage or history of. ROS: 10:30 Constitutional: Negative for fever, chills, and weight loss, Eyes: Negative for injury, deneen pain, redness, and discharge, ENT: Negative for injury, pain, and discharge, Neck: Negative for injury, pain, and swelling, Cardiovascular: Negative for chest pain, palpitations, and edema, Back: Negative for injury and pain, : Negative for injury, bleeding, discharge, and swelling, MS/Extremity: Negative for injury and deformity, Skin: Negative for injury, rash, and discoloration, Psych: Negative for depression, anxiety, suicide ideation, homicidal ideation, and hallucinations, Allergy/Immunology: Negative for hives, rash, and allergies, Endocrine: Negative for neck swelling, polydipsia, polyuria, polyphagia, and marked weight changes, Hematologic/Lymphatic: Negative for swollen nodes, abnormal bleeding, and unusual bruising. 10:30 Respiratory: Positive for cough, shortness of breath, at rest. 10:30 Abdomen/GI: Positive for abdominal pain, of the posterior aspect of left lateral abdomen, anterior aspect of left lateral abdomen, left upper quadrant and left lower quadrant. Exam: 10:30 Constitutional: This is a well developed, well nourished patient who is awake, alert, deneen and in no acute distress. Head/Face: Normocephalic, atraumatic. Eyes: Pupils equal round and reactive to light, extra-ocular motions intact. Lids and lashes normal. Conjunctiva and sclera are non-icteric and not injected. Cornea within normal limits. Periorbital areas with no swelling, redness, or edema. ENT: Nares patent. No nasal discharge, no septal abnormalities noted. Tympanic membranes are normal and external auditory canals are clear. Oropharynx with no redness, swelling, or masses, exudates, or evidence of obstruction, uvula midline. Mucous membranes moist. Neck: Trachea midline, no thyromegaly or masses palpated, and no cervical lymphadenopathy. Supple, full range of motion without nuchal rigidity, or vertebral point tenderness. No Meningismus. Chest/axilla: Normal chest wall appearance and motion. Nontender with no deformity. No lesions are appreciated. Abdomen/GI: Soft, non-tender, with normal bowel sounds. No distension or tympany. No guarding or rebound. No evidence of tenderness throughout. Back: No spinal tenderness. No costovertebral tenderness. Full range of motion. Female : Normal external genitalia. Skin: Warm, dry with normal turgor. Normal color with no rashes, no lesions, and no evidence of cellulitis. MS/ Extremity: Pulses equal, no cyanosis. Neurovascular intact. Full, normal range of motion. Neuro: Awake and alert, GCS 15, oriented to person, place, time, and situation. Cranial nerves II-XII grossly intact. Motor strength 5/5 in all extremities. Sensory grossly intact. Cerebellar exam normal. Normal gait. Psych: Awake, alert, with orientation to person, place and time. Behavior, mood, and affect are within normal limits. 10:30 Cardiovascular: Rate: tachycardic, actual rate is 100 bpm, Rhythm: regular, Pulses: Pulses are 4+ in bilateral radial, brachial, femoral, popliteal, posterior tibial and and dorsalis pedis arteries.. Heart sounds: normal, Edema: is not appreciated, JVD: is not appreciated. 13:17 ECG was reviewed by the Attending Physician. deneen Vital Signs: 09:47 BP 151 / 76; Pulse 100; Resp 18; Temp 97.9; Pulse Ox 100% on R/A; Weight 84.82 kg; ph 10:30 BP 124 / 68; Pulse 85; Resp 16; Pulse Ox 99% on R/A; Pain 5/10; em 12:00 BP 119 / 63; Pulse 74; Resp 16; Pulse Ox 98% on R/A; em 13:00 BP 140 / 70; Pulse 68; Resp 16; Pulse Ox 100% on R/A; em 14:00 BP 136 / 70; Pulse 64; Resp 15; Pulse Ox 99% on R/A; em [place] Coma Score: 10:30 Eye Response: spontaneous(4). Verbal Response: oriented(5). Motor Response: obeys em commands(6). Total: 15. Trauma Score (Adult): 10:30 Eye Response: spontaneous(1); Verbal Response: oriented(1); Motor Response: obeys em commands(2); Systolic BP: > 89 mm Hg(4); Respiratory Rate: 10 to 29 per min(4); [place] Score: 15; Trauma Score: 12 MDM: 09:40 Patient medically screened. deneen 10:31 Data reviewed: vital signs, nurses notes, lab test result(s), EKG, radiologic studies. deneen 10:32 Differential diagnosis: closed head injury, contusion, multiple trauma, cardiac deneen arrhythmia, idiopathic syncope, transient ischemic attack, vasovagal episode. Data interpreted: monitor car operator: rate is 100 beats/min, rhythm is normal sinus rhythm, Pulse oximetry: is not applicable for this patient encounter. Test interpretation: by ED physician or midlevel provider: ECG, plain radiologic studies. Counseling: I had a detailed discussion with the patient and/or guardian regarding: the historical points, exam findings, and any diagnostic results supporting the discharge/admit diagnosis, lab results, radiology results. 12:32 Response to treatment: the patient's symptoms have markedly improved after treatment. [facility] ED course: splenic laceration, with 8x3.5cm subcapsular hematoma, small blood in pelvis, dw dr cruz, icu full admit , q 6 cbc's. 04/13 11:00 Order name: Basic Metabolic Panel; Complete Time: 12:09 [facility] 04/13 11:00 Order name: Liver (Hepatic) Function; Complete Time: 12:09 [facility] 04/13 11:00 Order name: Troponin (Emerg Dept Use Only); Complete Time: 12:09 [facility] 04/13 11:00 Order name: NT PRO-BNP; Complete Time: 12:09 [facility] 04/13 11:00 Order name: Magnesium; Complete Time: 12: [facility] 04/13 11:00 Order name: Lipase; Complete Time: 12:09 [facility] 04/13 11:00 Order name: CBC with Automated Diff; Complete Time: 12:09 [facility] 04/13 10:28 Order name: XRAY Chest (1 view) [facility] 04/13 10:28 Order name: EKG; Complete Time: 11:16 [facility] 04/13 10:28 Order name: Cardiac monitoring; Complete Time: 10:55 [facility] 04/13 10:28 Order name: EKG - Nurse/Tech; Complete Time: 11:25 [facility] 04/13 10:28 Order name: IV Saline Lock; Complete Time: 11:25 [facility] 04/13 10:28 Order name: Labs collected and sent; Complete Time: 10:55 [facility] 04/13 10:28 Order name: O2 Per Protocol; Complete Time: 10:55 [facility] 04/13 10:28 Order name: O2 Sat Monitoring; Complete Time: 10:55 [facility] 04/13 10:28 Order name: CT Traumagram (Head C Spine CAP W Con); Complete Time: 12:09 [facility] 04/13 11:47 Order name: Urine Dipstick--Ancillary (enter results); Complete Time: 12:09 04/13 12:16 Order name: Type And Screen [facility] 04/13 13:03 Order name: CREATININE WHOLE BLOOD [facility] 04/13 13:49 Order name: Diet Regular; Complete Time: 13:50 04/13 10:29 Order name: Urine Dipstick-Ancillary (obtain specimen); Complete Time: 11:25 [facility] 04/13 12:16 Order name: IV Saline Lock - Large Bore; Complete Time: 12:20 deneen EC:17 Rate is 68 beats/min. Rhythm is regular. QRS [place] is Normal. IA interval is normal. QRS deneen interval is normal. QT interval is normal. No Q waves. T waves are Normal. No ST changes noted. Clinical impression: No evidence of ischemia. Interpreted by me. Reviewed by me. Administered Medications: 12:18 Drug: NS 0.9% 500 ml Route: IV; Rate: bolus; Site: left antecubital; em 14:13 Follow up: IV Status: Completed infusion; IV Intake: 500ml em 12:18 Drug: NS 0.9% 1000 ml Route: IV; Rate: 125 ml/hr; Site: left antecubital; em 13:00 Follow up: IV Status: Infusion continued upon admission em Disposition: 04/13/20 12:35 Hospitalization ordered by Berhane Rodrigez for Inpatient Admission. Preliminary diagnosis are Laceration of spleen - 8x 3.5 cm sibcapsular hematoma, Hemoperitoneum, Syncope and collapse, Abdominal tenderness. - Bed requested for Intensive Care Unit. - Status is Inpatient Admission. em - Condition is Fair. - Problem is new. - Symptoms have improved. Signatures: Dispatcher [employer] [facility] Luisito Barron MD MD cha Munoz, Edgar, RN RN Mikaela Card RN RN Carol Swain Corrections: (The following items were deleted from the chart) 11:24 10:52 Head C Spine Cap W Con ordered. [facility] ED[facility] 12:02 11:15 BASIC METABOLIC PANEL+C.LAB.BRZ ordered. [facility] ED[facility] 12:02 11:15 CBC+H.LAB.BRZ ordered. [facility] ED[facility] 12:02 11:15 HEPATIC FUNCTION+C.LAB.BRZ ordered. [facility] ED[facility] 12:02 11:15 MAGNESIUM+C.LAB.BRZ ordered. [facility] ED[facility] 12:02 11:15 PROBNP+C.LAB.BRZ ordered. [facility] EDNH 12:02 11:15 TROPONIN (EMERG DEPT USE ONLY)+C.LAB.BRZ ordered. [facility] ED[facility] 12:02 11:15 LIPASE+C.LAB.BRZ ordered. [facility] EDNH 14:12 12:35 Hospitalization Ordered by Berhane Rodrigez MD for Inpatient Admission. Preliminary eb diagnosis is Laceration of spleen - 8x 3.5 cm sibcapsular hematoma; Hemoperitoneum; Syncope and collapse; Abdominal tenderness. Bed requested for Intensive Care Unit. Status is Inpatient Admission. Condition is Fair. Problem is new. Symptoms have improved. deneen 15:24 14:12 04/13/2020 12:35 Hospitalization Ordered by Berhane Rodrigez MD for Inpatient em Admission. Preliminary diagnosis is Laceration of spleen - 8x 3.5 cm sibcapsular hematoma; Hemoperitoneum; Syncope and collapse; Abdominal tenderness. Bed requested for Intensive Care Unit. Status is Inpatient Admission. Condition is Fair. Problem is new. Symptoms have improved. eb
[2020-04-13] MEDS ORDERED: ONDANSETRON 4 MG/2 ML VIAL IV PRN (15:16)
[2020-04-13] MEDS ORDERED: FENTANYL CITR 100 MCG/2 ML IV PRN (15:16)
[2020-04-13 16:14] VITALS: BMI 31.6
[2020-04-13] MEDS: FAMOTIDINE 20 MG/2 ML VIAL IV SCH (21:00)
[2020-04-13] MEDS ORDERED: AMITRIPTYLINE 10 MG TAB PO PRN (22:01)
[2020-04-13] MEDS ORDERED: ZOLPIDEM TARTRATE 6.25 MG PO PRN (22:01)
[2020-04-13] MEDS ORDERED: LYSINE 500 MG PO PRN (22:01)
--- NOTE | 2020-04-13 22:49 | PN ---
Diagnoses: Status post fall, also a splenic laceration. Subjective: Patient doing well. No complaint. Abdomen is benign at this moment. Vital signs are s table. Hemoglobin down from 11 to 10.6, previously 9. Plan: Continue conservative treatment. Bed rest. Serial H and H. abdominal examinations. We want to consult medical doctors for the history of dizziness and syncope. ERICA/ELAINA Voice ID: [id number] Report ID: [id number]
[2020-04-13] MEDS: PANTOPRAZOLE 40MG TABLET PO SCH (22:53)
--- NOTE | 2020-04-13 23:28 | HP ---
Date of Admission: 04/13/2020 Reason For Service: Splenic hematoma. History Of Present Illness: This is the case of a 80-year-old patient who comes this morning after h aving some dizziness. She did not fall today, same happened last night, and same happened 10 days ag o, but 10 days ago, she fell. She says she fell hard. She was home all this time. She was doing ok ay. She has complained of bloating all the time and not feeling 100%. She clarified that she did no t fall last night and today, but when she came to the ER because she wanted to know what is going on with her, she was found to have a large splenic hematoma. A surgical consult was obtained. She gopi es any other trauma. Denies any other fall. Denies any dysuria, hematuria, hematochezia, or melena. Denies any recent traveling out of the country. Denies any family member sick at home. She states she has allergies and takes medication for it. She thinks that every now and then it keeps her weak . 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 Allergies: INCLUDE MORPHINE, CODEINE, ACETAMINOPHEN, PREGABALIN. Social History: She does not smoke. She does not drink alcohol. She does not remember when was las t colonoscopy. Family History: Noncontributory at this time. Review of Systems: Ten points otherwise unremarkable. Physical Examination: General: Patient is awake and alert. HEENT: Pupils anicteric. EOM positive. No otorrhea. No rhinorrhea. Neck: Supple. No JVD. No pinpoint tenderness. Trachea is midline. Tongue midline. Chest: Bilateral breath sounds. No guarding or rebound. Breasts: Deferred. Back: No pinpoint tenderness. No step-off. Abdomen: Soft and depressible. No guarding or rebound. Nontender. Bowel sounds positive. Rectal: Deferred. Pelvic: Deferred. Extremities: Full range of motion x4. Good capillary refill. Multiple bruises, she claimed she gan s normal on her skin. Neurologic: Cranial nerves 2 through 12 in grossly normal limits. Laboratory Data: WBC count is 12.4, hemoglobin of 11.0. Potassium 3.8, glucose 138. UA, blood nega tive. Had CT spine, chest, abdomen, and pelvis, interpreted by Dr. Marshall shows the following: The re are advanced degenerative changes in C-spine. No hematoma. No paraspinal masses. Brain shows no acute hemorrhage and no mass or edema. Chest shows no pneumothorax, no pulmonary contusion, no pleu ral effusion, no mediastinal hematoma, no masses seen. The spleen shows what looked like a laceratio n present with some subcapsular hematoma. There is small amount of fluid that could not be ruled out as blood around the left colic gutter and it is partially capsulated. Liver shows no infiltration. Thoracic spine with no compression. Assessment: A 80-year-old patient fell 10 days ago, did not look for medical attention. She has not felt herself for the last 10 days. She feels dizzy every now and then. Same thing happened when justice cagle fell the first time, that has not been solved. Her primary doctor is Dr. Cheney. She has not been t o him yet to figure it out, but now, we have this situation. We have a splenic hematoma. Her abdome n is benign, blood pressure stable and I explained to her 2 different scenarios, that must be a splen ic hematoma, a splenic laceration from 10 days ago and luckily she survived that event. She has not been in bedrest. She has been moving around and that may or may not be related to her dizziness and her syncope the first time. Because she is completely asymptomatic at this moment and no belly ache, we have 2 options, we can put her in observation on ICU, H and H, followup CT abdomen examination, l ooking for vital signs. If she develops anything that suggests that hematoma break, she needs emerge nt laparotomy with splenectomy. Obviously, she preferred not to have that route, but at same time, t his explanation of the emergent laparotomy with splenectomy did not fit well with her, especially whe n she is joking, she is talking to her friends, and basically, she feels no distress at all, but at t he same time, it is hard for us to know exactly the etiology of her splenic laceration. Even though clinically right now it looks like it is old, I cannot even say that she has a hematoma before and no w she just got bigger. So for that reason, if she does not let me do this splenectomy at this moment , then we going to put her in the ICU under clear and close evaluation. Her syncope episodes and her dizziness even before the fall needed to be addressed by her primary doctor, hospitalist, and randall huddleston a neurologist because if she keeps doing that, she will break more than just spleen, she may break some other conditions and next time may be not be that butch. Right now, her abdomen is benign. It is not distended. If we see those change, then we will have to have the assumption of breaking that hematoma and will require emergent laparotomy with a splenectomy. She understand both options. She wants to use the conservative options understanding that making the wrong decision or not doing sple nectomy at this time may compromise her life and may cause . She is questioning if she is going to go home right now, and I mentioned to her once again that is not an option. Option will be going emergently right now for surgery as splenectomy versus very close observation at the ICU, and if we see clinically she deteriorates, she has to let us do the surgery. With her friend next to her and edelmira ramirez jokes and between smiles, she has decided okay she is going to stay here and her friend will t [place] care of things at home and that is a viable option. So, we will follow the patient with the neur ologist and the primary doctor. SARAH Voice ID: [id number]
[2020-04-14 00:47] LABS: Hematocrit 29.1 % (36.0-45.0)
[2020-04-14 06:09] LABS: Absolute Lymphocytes (CBC) 1.8 K/uL (0.7-4.9); Basophils % 0.6 % (0-1.3); Hematocrit 29.8 % (36.0-45.0); MPV 7.3 fL (7.6-11.3); RBC Red Blood Cell Count 2.97 M/uL (3.86-4.86)
[2020-04-14 06:36] LABS: Albumin 2.7 g/dL (3.4-5.0); Bilirubin Direct 0.3 mg/dL (0-0.2); Bilirubin Total 0.9 mg/dL (0.2-1.0); Potassium 3.8 mmol/L (3.5-5.1); Protein, Total 5.9 g/dL (6.4-8.2)
[2020-04-14] MEDS: PANTOPRAZOLE 40MG TABLET PO SCH ×3 (07:06→20:57)
[2020-04-14] MEDS: FAMOTIDINE 20 MG/2 ML VIAL IV SCH ×2 (07:07→19:46)
--- NOTE | 2020-04-14 07:24 | P.CNS ---
Date of Consult: 04/13/20 Reason for Consult: Medical management/syncope vs. mechanical fall Requesting Physician: Berhane Rodrigez Primary Care Provider: Noni Chief Complaint: Patient status post fall 1 week ago with splenic laceration History of Present Illness: Patient is a 72-year-old female who came to the hospital with a splenic laceration. Patient was at a nursery and picking out some rapp when she stumbled and fell into a statue. She hit the left side of her abdomen and ribs. She was having pain for the last few days which was getting progressively worse. She also noticed some bruising. The pain went to the epigastric and umbilical area and that made her come in for evaluation. Workup in the emergency room revealed that she had a in capsulated splenic hematoma as well as some old intra-abdominal blood. Patient will be admitted for observation of the splenic hematoma. Bed rest as of now on an therapy over the next 24-48 hr pending surgical clearance. Allergies acetaminophen [From Tylenol] Allergy (Mild, Verified 02/26/13 22:03) CAMACHO, flushing, stiff neck codeine [Codeine] Allergy (Mild, Verified 02/26/13 15:11) turns red, headache, itch morphine Allergy (Mild, Verified 02/26/13 15:10) headache, turns red. pregabalin [From Lyrica] Allergy (Mild, Verified 02/27/13 00:27) swelling Home Medications: Esomeprazole Mag Trihydrate [Nexium] 40 mg PO BID 02/27/13 Indomethacin [Indocin Sr] 75 mg PO BEDTIME 02/27/13 Levothyroxine [Synthroid*] 88 mcg PO BEDTIME 02/27/13 Lysine [l-Lysine] 500 mg PO PRN PRN 02/27/13 Zolpidem Tartrate [Ambien Cr] 6.25 mg PO BEDTIME PRN PRN 02/27/13 estradioL [Estradiol] 0.5 mg PO BEDTIME 02/27/13 Amitriptyline [Elavil] 20 mg PO BEDTIME PRN PRN 04/13/20 Olmesartan Medoxomil [Benicar] 40 mg PO BEDTIME 04/13/20 - Past Medical/Surgical History Diabetic: No -: osteoarthritis -: fibromyalgia -: pelvic prolapse -: Bilateral knee surgery -: skull fracture -: gaglian cyst removal -: back problems - Family History Father Family History: Reviewed- Non-Contributory - Social History Smoking Status: Never smoker Alcohol use: Yes CD- Drugs: No Caffeine use: Yes Place of Residence: Home Review of Systems 10-point ROS is otherwise unremarkable Physical Examination Reviewed General: Alert, In no apparent distress, Oriented x3 HEENT: Atraumatic, PERRLA, Mucous membr. moist/pink, EOMI, Sclerae nonicteric Neck: Supple, 2+ carotid pulse no bruit, No LAD, Without JVD or thyroid abnormality Respiratory: Clear to auscultation bilaterally, Normal air movement Cardiovascular: Regular rate/rhythm, Normal S1 S2, No murmurs Gastrointestinal: Normal bowel sounds, Soft and benign, No guarding, Distended, Tenderness, Rebound Musculoskeletal: No clubbing, No swelling, No tenderness Integumentary: No rashes Neurological: Normal speech, Normal strength at 5/5 x4 extr, Normal tone, Sensation intact, Cranial nerves 3-12 intact, Normal affect Lymphatics: No axilla or inguinal lymphadenopathy Laboratory Data (last 24 hrs) 04/13/20 10:47: WBC 12.4 H, Hgb 11.0 L, Hct 32.9 L, Plt Count 431 H 04/13/20 10:47: Sodium 139, Potassium 3.8, BUN 12, Creatinine 1.03, Glucose 138 H, Magnesium 2.2, Total Bilirubin 0.6, AST 44 H, ALT 26, Alkaline Phosphatase 177 H, Lipase 101 04/13/20 10:28: WBC Cancelled, Hgb Cancelled, Hct Cancelled, Plt Count Cancelled 04/13/20 10:28: Sodium Cancelled, Potassium Cancelled, BUN Cancelled, Creatinine Cancelled, Glucose Cancelled, Magnesium Cancelled, Total Bilirubin Cancelled, AST Cancelled, ALT Cancelled, Alkaline Phosphatase Cancelled, Lipase Cancelled - Problems (1) Splenic laceration Current Visit: Yes Status: Acute (2) Status post fall Current Visit: Yes Status: Acute (3) Pleuritic pain Current Visit: Yes Status: Acute (4) Intra-abdominal hematoma Current Visit: Yes Status: Acute (5) History of hypertension Current Visit: Yes Status: Acute (6) History of hypothyroidism Current Visit: Yes Status: Acute Conclusions/ Impression: Plan: 1. Monitor H&H 2. Ambulate when surgically clear 3. Slowly advanced diet as tolerated 4. Incentive spirometer to bedside 5. Pain control 6. Strict blood pressure control 7. Continue with thyroid medication 8. GI and DVT prophylaxis Critical Care: No Time Spent Managing Pts care (In Minutes): 45
--- NOTE | 2020-04-14 07:32 | P.PN ---
Subjective Date of Service: 04/14/20 Patient with no new complaints. May get physical therapy pending surgical clearance Review of Systems 10-point ROS is otherwise unremarkable Physical Examination - Vital Signs Temperature: 96.9 F Blood Pressure: 125/57 Pulse: 67 Respirations: 16 Pulse Ox (%): 97 - Physical Exam General: Alert, In no apparent distress, Oriented x3 Respiratory: Clear to auscultation bilaterally, Normal air movement Cardiovascular: Regular rate/rhythm, Normal S1 S2, No murmurs Gastrointestinal: Normal bowel sounds, Soft and benign, Non-distended, No tenderness Musculoskeletal: No clubbing, No swelling, No tenderness Integumentary: No rashes Neurological: Normal tone, Sensation intact, Cranial nerves 3-12 intact - Studies Laboratory Data (last 24 hrs) 04/13/20 10:47: WBC 12.4 H, Hgb 11.0 L, Hct 32.9 L, Plt Count 431 H 04/13/20 10:47: Sodium 139, Potassium 3.8, BUN 12, Creatinine 1.03, Glucose 138 H, Magnesium 2.2, Total Bilirubin 0.6, AST 44 H, ALT 26, Alkaline Phosphatase 177 H, Lipase 101 04/13/20 10:28: WBC Cancelled, Hgb Cancelled, Hct Cancelled, Plt Count Cancelled 04/13/20 10:28: Sodium Cancelled, Potassium Cancelled, BUN Cancelled, Creatinine Cancelled, Glucose Cancelled, Magnesium Cancelled, Total Bilirubin Cancelled, AST Cancelled, ALT Cancelled, Alkaline Phosphatase Cancelled, Lipase Cancelled Medications List Reviewed: Yes Assessment & Plan - Problems (Diagnosis) (1) Splenic laceration Current Visit: Yes Status: Acute (2) Status post fall Current Visit: Yes Status: Acute (3) Pleuritic pain Current Visit: Yes Status: Acute (4) Intra-abdominal hematoma Current Visit: Yes Status: Acute (5) History of hypertension Current Visit: Yes Status: Acute (6) History of hypothyroidism Current Visit: Yes Status: Acute - Plan Plan: 1. Pain control 2. Monitor H&H 3. Physical therapy once patient is surgically cleared 4. Monitor platelet cts 5. Repeat CT or ultrasound in 24-48 hrs to reassess 6. Strict blood pressure control 7. GI and DVT prophylaxis - Advance Directives Does patient have a Living Will: No Does patient have a Durable POA for Healthcare: No
--- NOTE | 2020-04-14 10:56 | EKG ---
Test Date: 2020-04-13 Test Time: 12:59:23 Wearing Apparel Folder: HELGA MEASUREMENT RESULTS: Intervals: Rate: 68 NV: 176 QRSD: 134 QT: 448 QTc: 476 [place]: P: 73 NV: 176 QRS: 60 T: 61 INTERPRETIVE STATEMENTS: Normal sinus rhythm Right bundle branch block Abnormal ECG Compared to ECG 02/27/2013 08:16:21 Right bundle-branch block now present Sinus bradycardia no longer present Electronically Signed On 04-14-20 10:56:01 CDT by Nahum Sultana
--- NOTE | 2020-04-14 12:35 | PN ---
Date of Progress Note: 04/14/2020 Diagnosis: Status post fall, splenic laceration. Patient is doing okay. No complaints. No shortness of breath, no chest pain. No abdominal pain. Review of Systems: Ten points otherwise unremarkable. Physical Examination: General: Patient is awake and alert, in no distress. Eyes: Pupils anicteric. Chest: Bilateral breath sounds. Abdomen: Soft and depressible. No guarding or rebound. Extremities: Good capillary refill. Hemoglobin is stable. Plan: We are going to start getting out of bed today with assistance, fall precautions. We are selam g to keep her in the ICU overnight. We are going to continue with her serial abdominal examination, DVT and GI prophylaxis, diet. If she is hematocrit stable by tomorrow we will move her to the floor once again with fall precautions. We have consulted neurologist to the help us with her diagnosis. She had many trips and many falls in the past and at this time she has the splenic laceration and we wanted to see if there is anything we can help with to avoid any other life-threatening problem in th e future. ERICA/MODL Voice ID: [id number] Report ID: [id number]
[2020-04-14] MEDS ORDERED: ZOLPIDEM TARTRATE 5 MG TABLET PO PRN (14:58)
[2020-04-14 15:12] LABS: Hematocrit 31.1 % (36.0-45.0)
[2020-04-14] MEDS: LEVOTHYROXINE SOD 0.088 MG TAB PO SCH (20:57)
[2020-04-14] MEDS ORDERED: LEVOTHYROXINE SOD 0.112 MG TAB PO SCH (21:00)
[2020-04-14 22:07] LABS: Hematocrit 30.2 % (36.0-45.0)
--- NOTE | 2020-04-14 23:15 | CON ---
Consultation called by Dr. Rodrigez because of the patient having repeated falls. History Of Present Illness: Ms. Venegas is a 80-year-old right-handed patient with hypothyr oidism and osteoarthritis who was admitted to [facility] on 04/13/2020, after a recent fall that resulted in splenic laceration. Patient said she was picking out some rapp when she turned, stumbled and fell onto a statue. She hit the left abdomen and chest, had pain in the area, but the p ain was not severe enough for her to immediately come to the hospital, few days later after became pr ogressively worse and she noted more bruising and she also noted the spread of the pain into the epig astric and umbilical area and she came to [facility]. Imaging showed an encapsulated spleni c hematoma and intraabdominal blood that shows more chronic. Regarding her fall, the patient denies slipping, she said she just turned and lost her balance. However, she has had other episodes or inci dences of falling in the past for perhaps 5 years although again she denies any phil loss of balance during those falls. 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 It should be noted that severe spinal stenosis impairs tr ansmission of inflammation from the brain to the lower extremities and from the sensory receptors lynn k towards the brain, which is a significant factor that may impact balance coordination gait and with her very high risk of falling. She has not had neck surgery. At this point in ICU, she reports she is back to baseline and actually is ready to be sent out from [facility] ICU and is getting ready to perhaps be discharged if she does not require acute surgery or to be a dmitted for surgery by Dr. Rodrigez. Past Medical History: As indicated, but in addition fibromyalgia, pelvic prolapse, underwent surgery , osteoarthritis, history of a skull fracture and ganglion. Surgical History: Ganglion cyst removal. Family History: Noncontributory. Social History: Occasional alcohol use, but no tobacco use. No IV drug use. Allergies: ACETAMINOPHEN, CODEINE, MORPHINE, LYRICA. Home Medications: Omeprazole 40 mg twice daily, indomethacin 75 mg at bedtime, Synthroid 88 mcg at b edtime, Lysine 500 mg as needed daily, Ambien 6.25 mg at night as needed, estradiol 0.5 mg at bedtime , Elavil 20 mg at bedtime, Benicar 40 mg at bedtime. Review of Systems: She denies any recent fevers, chills, nausea, vomiting, myalgias, arthralgias. No rash, headache. N o weight change. No psychiatric complaints. No active gastrointestinal or genitourinary issues asid e from the abdominal pain as mentioned above. Physical Examination: Vital Signs: Blood pressure 144/69, pulse 71, respiratory rate 16 to 19, temperature 98.7, oxygen sa turation 98%. Weight 199 pounds, height 5 feet 6 inches, BMI of 31. General: Ms. Venegas is resting in ICU bed in no acute distress. HEENT: She is normocephalic, atraumatic. Sclerae anicteric. Oropharynx is moist and pink. Neck: Supple. Chest: Clear. Heart: Regular. Extremities: Show no significant edema, cyanosis, or clubbing. Neurologic: Alert, oriented to situation, place, person. Follows all commands appropriately. Crani al nerves 2 through 12 are intact by exam. Motor examination, she has full strength in upper and low er extremities. Has slightly increased tone in the upper and lower extremities. Sensory exam is int act in the upper and lower extremities with mild stocking-glove loss. Reflexes, after her bilateral knee replacement still increased in the patellae and heels and in the upper extremities. Coordinatio n is intact in the upper and lower extremities. Gait, she is on bed rest, being evaluated by Dr. Milagro gregory for the splenic hematoma and was not ambulated. Laboratory Studies: Complete blood count with differential shows hemoglobin of 10.5, hematocrit 31.1 , white blood cell count 8.0, neutrophils normal at 63. Chemistries unremarkable, glucose ranged fro m 89 to 138, calcium low at 8.4. AST, ALT unremarkable. Alkaline phosphate is elevated 158. Urinal ysis is unremarkable. Electrocardiogram shows normal sinus rhythm with right bundle branch block. Assessment: Ms. 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 She has splenic hematoma and is b eing evaluated for surgery by Dr. Rodrigez. She has other comorbid conditions, which do not necessar lee impact her gait, although she has had bilateral knee replacement, which can impact sense of marjorie ce and coordination. Once she is away from the acute phase and treated for her splenic hematoma, she may benefit from an MRI of the cervical spine to better define this degree of stenosis and to strati fy her potential cervical cord decompression which may be required to improve the patient's ability t o send signals up and down the cord and improve her balance, gait, coordination. Plan: 1.MRI of the cervical spine once she is stable enough to do that. 2.She may require referral to Neurosurgery. 3.The patient should ambulate with care at all times and may benefit from at least a 4 prong cane if not a walker. 4.Once discharged from hospital, she should follow up in Dr. Coles's clinic in 1 month. ALEX Voice ID: [id number] Report ID: [id number]
[2020-04-15 05:15] LABS: Absolute Lymphocytes (CBC) 2.4 K/uL (0.7-4.9); Basophils % 1.1 % (0-1.3); Hematocrit 30.7 % (36.0-45.0); Lymphocytes % 22.2 % (15.3-44.8); MPV 7.5 fL (7.6-11.3); RBC Red Blood Cell Count 3.09 M/uL (3.86-4.86)
[2020-04-15 05:30] LABS: Albumin 2.8 g/dL (3.4-5.0); Bilirubin Total 0.7 mg/dL (0.2-1.0); Protein, Total 6.2 g/dL (6.4-8.2)
[2020-04-15] MEDS ORDERED: WATER FOR INJ,STERILE 10 ML ONE (07:59)
[2020-04-15] MEDS: FAMOTIDINE 20 MG/2 ML VIAL IV SCH ×2 (09:00→21:59)
[2020-04-15] MEDS: PANTOPRAZOLE 40MG TABLET PO SCH (09:39)
--- NOTE | 2020-04-15 13:30 | P.PN ---
Subjective Date of Service: 04/15/20 Primary Care Provider: Noni Chief Complaint: Patient status post fall 1 week ago with splenic laceration Subjective: Improving, Doing well Physical Examination - Vital Signs Temperature: 97.2 F Blood Pressure: 109/59 Pulse: 72 Respirations: 20 Pulse Ox (%): 95 - Physical Exam General: Alert, In no apparent distress, Oriented x3, Cooperative HEENT: Atraumatic Neck: Supple Respiratory: Clear to auscultation bilaterally, Normal air movement Cardiovascular: Normal pulses, Regular rate/rhythm Gastrointestinal: Other (Pain to the left side improved) Neurological: Normal speech, Normal strength at 5/5 x4 extr, Normal tone, Normal affect - Studies Medications List Reviewed: Yes Assessment & Plan Discharge Plan: Home Plan to discharge in: 48 Hours Physician Review Additional Text: Impression: Fall leading to splenic laceration with 8 x 3.5 cm subcapsular hematoma complicated with blood to the left colic gutter partially encapsulated splenic fracture with hematoma Anemia likely from fall with noted noted changes above Hypothyroidism History Hypertension History of 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 Will discuss further with surgery on when the patient can be ambulating. Hemoglobin stable at this time. Continue with pain control medication. If able to ambulate will transfer patient to the floor with physical therapy. Anticipate improvement over the next 24-48 hr. Await further recommendations from surgery. Anemia likely from fall with noted noted changes above: Continue monitor anemia. Overall stable Hypothyroidism: Continue medication History Hypertension: Medication currently on hold as blood pressures are well controlled off medication. 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 Continue with pain control medication. Neurology recommends MRI of cervical spine once stable. May need to see a neuro surgery as an outpatient. Time Spent Managing Pts Care (In Minutes): 55
[2020-04-15] MEDS: LEVOTHYROXINE SOD 0.088 MG TAB PO SCH (21:59)
--- NOTE | 2020-04-16 07:33 | RAD REPORT ---
EXAM DESCRIPTION: MRI - Brain W/Wo Cont - 04/15/2020 9:18 pm CLINICAL HISTORY: seizure protocol COMPARISON: Head C Spine Cap W Con dated 04/13/2020 TECHNIQUE: Sagittal and axial T1-weighted images were obtained. Axial PD/heavily T2-weighted and T2- FLAIR images were obtained along with axial DWI/ADC mapping sequences. Coronal thin-section T1 weigh katharine and heavily T2 weighted sequence obtained. Axial and coronal post-contrast T1-weighted images we re also obtained. A ml Multihance contrast following utilized. FINDINGS: No intracranial hemorrhage, mass or acute infarction. There is no edema or shift of midli ne structures. No extra-axial fluid collections. [place]-matter/white matter junction is preserved. Sig nal voids are seen as a normal finding in the major intracranial vessels. No medial temporal lobe asy mmetry or focal abnormality seen. Patient has very little atrophy and little or no chronic ischemic c hange. Ventricles are normal. No globe or orbital content abnormality. Post-contrast images show normal enhancement. No dural thickening. Mastoid air cells and paranasal sinuses are clear. IMPRESSION: Negative contrast enhanced MRI of the Brain for acute or significant finding.
[2020-04-16 08:09] VITALS: O2SAT 98
[2020-04-16] MEDS: FAMOTIDINE 20 MG/2 ML VIAL IV SCH (08:09)
[2020-04-16 11:33] VITALS: BP 157/65; TEMP 98.6
--- NOTE | 2020-04-16 11:56 | P.PN ---
Subjective Date of Service: 04/16/20 Primary Care Provider: Noni Chief Complaint: Patient status post fall 1 week ago with splenic laceration Subjective: Tolerating diet, Ambulating, Improving Review of Systems Unremarkable General: Unremarkable Eyes: Unremarkable ENT: Unremarkable Respiratory: Unremarkable Cardiovascular: Unremarkable Gastrointestinal: As per HPI Genitourinary: Unremarkable Musculoskeletal: Unremarkable Neurological: Unremarkable Physical Examination - Vital Signs Temperature: 98.6 F Blood Pressure: 157/65 Pulse: 89 Respirations: 18 Pulse Ox (%): 96 - Physical Exam General: Alert, In no apparent distress, Oriented x3 HEENT: Atraumatic, Normocephalic Neck: Supple Respiratory: Clear to auscultation bilaterally, Normal air movement Cardiovascular: No edema, Normal S1 S2 Capillary refill: <2 Seconds Gastrointestinal: Normal bowel sounds, Soft and benign, No tenderness, No rebound, No guarding Musculoskeletal: No erythema, No tenderness Integumentary: No tenderness/swelling, No erythema Neurological: Normal speech - Studies Medications List Reviewed: Yes Assessment & Plan Discharge Plan: Home Plan to discharge in: 24 Hours Physician Review Additional Text: Impression: Fall leading to splenic laceration with 8 x 3.5 cm subcapsular hematoma complicated with blood to the left colic gutter partially encapsulated splenic fracture with hematoma Anemia likely from fall with noted noted changes above Hypothyroidism History Hypertension 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 Patient states her pain is very well under control at this time. Anticipate she will surgery will see evaluate patient again today, patient could potentially be discharged. Neurology also evaluated the patient and made recommendation for either four-prong cane or walker to decrease risk for falls at home. Anemia likely from fall with noted noted changes above: Continue monitor anemia. Overall stable Hypothyroidism: Continue medication History Hypertension: Medication currently on hold as blood pressures are well controlled off medication. 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 Continue with pain control medication. Neurology recommends MRI of cervical spine once stable. May need to see a neuro surgery as an outpatient. Critical Care: No Time Spent Managing Pts Care (In Minutes): 55
--- NOTE | 2020-04-16 13:00 | P.PN ---
Subjective Date of Service: 04/15/20 Primary Care Provider: Noni Chief Complaint: Patient status post fall 1 week ago with splenic laceration Subjective: Tolerating diet, Ambulating, Improving Review of Systems 10-point ROS is otherwise unremarkable Physical Examination - Vital Signs Temperature: 98.6 F Blood Pressure: 157/65 Pulse: 89 Respirations: 18 Pulse Ox (%): 96 - Physical Exam General: Alert, In no apparent distress, Oriented x3, Cooperative HEENT: PERRLA, EOMI Neck: Supple Respiratory: Normal air movement Gastrointestinal: Soft and benign, No rebound, No guarding Musculoskeletal: No erythema, No tenderness, No warmth Integumentary: No rashes, No breakdown Neurological: Normal speech - Studies Imagings Data: MRI neg Medications List Reviewed: Yes Assessment And Plan - Plan floor fall precautions f/u neuro IS SCD ambulate
--- NOTE | 2020-04-16 19:34 | PN ---
Date of Progress Note: 04/16/2020 Diagnosis: Splenic laceration, status post fall, Subjective: This is the case of a 80-year-old patient, comes to us with a splenic laceration, admitt ed to the hospital for observation . Patient is doing great. Today, she is tolerating t. No shortness of breath. No chest pain. No abdominal pain. Ambulating. Having flatus and bowel movement. She wants to go home. Review of Systems: Ten points otherwise unremarkable. No syncope. No shortness of breath. No dyspnea. Physical Examination: HEENT: Pupils equal and reactive, anicteric. Neck: Supple. Chest: Clear. Abdomen: Soft and depressible. No guarding or rebound. Extremities: Good capillary refill. Full range of motion x4. Neurologic: Cranial nerves 2 through 12 grossly within normal limits. Laboratory Data: Blood work was reviewed. Plan: Patient will be discharged home. She states she has all the protection at home with the tubin g on the handles to go in and out of the shower and everything and she once again explained at this t jhoan she did not fall the second time. She fell just the first time. So, she is being careful, she i s aware of that. She promised she is going to be double checking everything on the floor and make chacon re she does not trip. She wants to go home. I believe she is safe to go. If she develops any short ness of breath, any abdominal pain, I asked her to call 911 and come to the ER immediately. Otherwis e, we will see the patient in 1 week in my office. No heavy lifting. She was asked to still see the neurologist who consulted her during this admission even though the MRI was negative. HM/MODL Voice ID: [id number] Report ID: [id number]
== END 2020-04-16 14:08 | disposition home or self-care (01) | DRG 816 ==
LOC: ER 09:27 → ERHOLD 12:38 → 3RD-ICU 14:49 → 4TH 04-15 20:51
PROVIDERS: ADMIT Surgery; ATTEND Surgery
DX: S36.032A Major laceration of spleen, initial encounter (principal); I10 Essential (primary) hypertension; E03.9 Hypothyroidism, unspecified; D64.9 Anemia, unspecified; R07.81 Pleurodynia; W01.198A Fall on same level from slipping, tripping and stumbling with subsequent striking against other object, initial encounter; Z88.8 Allergy status to other drugs, medicaments and biological substances; Z88.6 Allergy status to analgesic agent; Z79.899 Other long term (current) drug therapy; Z90.710 Acquired absence of both cervix and uterus; Z79.890 Hormone replacement therapy; Z88.5 Allergy status to narcotic agent
CPT/HCPCS: 36415; 70450; 70553; 71045; 71260; 72125; 74177; 80048; 80053; 80076; 81003; 82565; 83690; 83735; 83880; 84484; 85014; 85018; 85025; 86850; 86900; 86901; 93005; 96360; 96361; 97116; 97161; 99285; A9577; J3010; J7030; Q9967; U0002